=== PATIENT | female | born 1995 | race Caucasian/White ===

== ENCOUNTER → 2016-09-07 | Outpatient (CLI) | payer OTHER ==
[~2016-09-07] MED LIST: CEPH500T PO; FOLI1TAB7 PO; FRRS300 PO; LEVE250T PO; OXYC-57 PO; PRENTAB26 PO
[2016-09-07 14:42] LABS: BASO % 0.3 %; BASO ABS # 0.02 K/uL (0-0.2); COMPLETE YES; EOS % 0.5 %; HEMATOCRIT 34.7 % (37-47); IG% 0.2 %; LYMPH % 23.8 %; LYMPH ABS # 1.58 K/uL (1.2-3.4); MEAN CELL VOLUME 82.6 fL (80-100); MEAN CORPUSCULAR HEMOGLOBIN 30.2 pg (25-34); MEAN CORPUSCULAR HGB CONC 36.6 g/dl (32-36); MEAN PLATELET VOLUME 10.6 fL (7.4-10.4); MONO % 9.5 %; NEUT % 65.7 %; PLATELET COUNT 149 K/uL (130-400); WHITE BLOOD COUNT 6.65 K/uL (4.8-10.8)
[2016-09-07 15:04] LABS: GTGD 50 Grams
[2016-09-07 16:17] LABS: URINE APPEARANCE CLEAR (CLEAR); URINE COLOR DK YELLOW; URINE EPITHELIAL CELL AUTO >30 /lpf (0-5); URINE NITRITE NEG (NEG); URINE PH 6.5 (4.5-7.5); URINE SPECIFIC GRAVITY 1.025 (1.000-1.030); UROBILINOGEN NEG (NEG)
[2016-09-07 16:20] LABS: MANUAL MICROSCOPIC REQUIRED? NO; REVIEW REQ? NO
[2016-09-07 16:21] LABS: URINE BILIRUBIN NEG (NEG)
[2016-09-10 08:33] LABS: CHLAMYDIA TRACH RNA*** NOT DETECTED (NOT DETECTED); GC (NEIS GONORRHOEAE)RNA** NOT DETECTED (NOT DETECTED)
== END | disposition home or self-care (01) ==
LOC: C.LAB1850 13:12
PROVIDERS: ATTEND Obstetrics & Gynecology
DX: Z34.82 Encounter for supervision of other normal pregnancy, second trimester (principal)

== ENCOUNTER → 2016-12-06 | Outpatient (CLI) | payer OTHER ==
[~2016-12-06] MED LIST changes: -CEPH500T PO; -OXYC-57 PO
[2016-12-06 15:41] LABS: HEMATOCRIT 31.1 % (37-47)
[2016-12-06 16:27] LABS: URINE APPEARANCE CLEAR (CLEAR); URINE BILIRUBIN NEG (NEG); URINE COLOR DK YELLOW; URINE EPITHELIAL CELL AUTO >30 /lpf (0-5); URINE NITRITE NEG (NEG); URINE SPECIFIC GRAVITY 1.028 (1.000-1.030); UROBILINOGEN POS (NEG)
[2016-12-06 16:34] LABS: MANUAL MICROSCOPIC REQUIRED? NO; REVIEW REQ? NO
[2016-12-06 17:30] LABS: GTGD 50 Grams
== END | disposition home or self-care (01) ==
LOC: C.LAB1850 14:15
PROVIDERS: ATTEND Obstetrics & Gynecology
DX: Z34.83 Encounter for supervision of other normal pregnancy, third trimester (principal)

== ENCOUNTER 2016-12-15 23:03 | Outpatient (CLI) | payer OTHER ==
[~2016-12-15] VITALS: Ht 152.4 cm; Wt 54.0 kg
[2016-12-16 00:39] VITALS: Ht 152.4 cm; Wt 54.0 kg
[2016-12-16 01:34] LABS: URINE APPEARANCE CLOUDY (CLEAR); URINE BILIRUBIN NEG (NEG); URINE COLOR YELLOW; URINE EPITHELIAL CELL AUTO >30 /lpf (0-5); URINE NITRITE NEG (NEG); URINE PH 8.5 (4.5-7.5); URINE SPECIFIC GRAVITY 1.016 (1.000-1.030); UROBILINOGEN NEG (NEG); ZZUR CULT IF INDIC CLEAN CATCH NO
[2016-12-16 01:36] LABS: MANUAL MICROSCOPIC REQUIRED? NO; REVIEW REQ? YES
== END 2016-12-16 01:58 | disposition home or self-care (01) ==
LOC: C.OPB 23:03 → C.LD 23:03 → C.OPB 12-16 01:58
PROVIDERS: ATTEND Obstetrics & Gynecology
DX: O26.893 Other specified pregnancy related conditions, third trimester (principal); N89.8 Other specified noninflammatory disorders of vagina; Z3A.29 29 weeks gestation of pregnancy

== ENCOUNTER 2017-02-22 01:16 | Observation (INO) | payer OTHER ==
[~2017-02-22] VITALS: Ht 152.4 cm; Wt 62.1 kg
[~2017-02-22 01:16] MED LIST changes: -FOLI1TAB7 PO; -FRRS300 PO; -LEVE250T PO
[2017-02-22 02:18] LABS: URINE APPEARANCE CLOUDY (CLEAR); URINE BILIRUBIN NEG (NEG); URINE COLOR YELLOW; URINE EPITHELIAL CELL AUTO >30 /lpf (0-5); URINE NITRITE POS (NEG); UROBILINOGEN NEG (NEG); ZZUR CULT IF INDIC CLEAN CATCH YES
[2017-02-22 02:19] LABS: MANUAL MICROSCOPIC REQUIRED? NO; REVIEW REQ? NO
[2017-02-22 02:25] LABS: MEAN CORPUSCULAR HGB CONC 31.6 g/dl (32-36)
[2017-02-22 02:35] LABS: MEAN CORPUSCULAR HEMOGLOBIN 21.8 pg (25-34); RED BLOOD COUNT 4.49 M/uL (4.2-5.4); WHITE BLOOD COUNT 10.87 K/uL (4.8-10.8)
[2017-02-22] MEDS ORDERED: LACTATED RINGER'S 1000ML 500 ML IV ONE (02:39)
[2017-02-22] MEDS ORDERED: NURSING VERBAL MED ORDER ONE ×3 (02:45→03:30)
[2017-02-22] MEDS ORDERED: OXYCODONE/ACETAMINOPHEN 5-325 TAB PO STA (02:48)
[2017-02-22 02:56] LABS: BASO % 0.2 %; BASO ABS # 0.02 K/uL (0-0.2); COMPLETE YES; EOS % 0.2 %; IG% 0.3 %; LYMPH % 17.2 %; LYMPH ABS # 1.87 K/uL (1.2-3.4); MICROCYTOSIS PRESENT; MONO % 11.5 %; NEUT % 70.6 %; PLATELET COUNT 140 K/uL (130-400); PLT ESTIMATE NORMAL
[2017-02-22] MEDS ORDERED: CEFAZOLIN IV 2,000 MG in SYRINGE 0 ML IV SCH ×2 (03:00→11:00)
[2017-02-22] MEDS ORDERED: ONDANSETRON INJ 2 MG/ML 2 ML VIAL IV STA (03:28)
[2017-02-22 04:15] LABS: ALB/GLOB RATIO 0.6 (0.9-2); ALKALINE PHOSPHATASE 181 U/L (45-117); ALT/SGPT 15 U/L (12-78); AST/SGOT 14 U/L (15-37); BLOOD UREA NITROGEN 5 mg/dl (7-18); BUN/CREATININE RATIO 7.7 (10-20); CALCIUM 8.2 mg/dl (8.5-10.1); CARBON DIOXIDE 22 mmol/L (21-32); CHLORIDE 108 mmol/L (98-107); GLUCOSE 98 mg/dl (70-99); POTASSIUM 3.4 mmol/L (3.5-5.1); SODIUM 139 mmol/L (136-145)
[2017-02-22] MEDS ORDERED: OXYCODONE/ACETAMINOPHEN 5-325 TAB PO PRN (05:15)
[2017-02-22] MEDS ORDERED: CEFAZOLIN IV 2,000 MG in DEXTROSE 5% 50ML 50 ML IV SCH (05:15)
[2017-02-22] MEDS: LACTATED RINGER'S 1000ML 1,000 ML IV SCH ×2 (06:05→10:59)
[2017-02-22] MEDS ORDERED: ACETAMINOPHEN 500 MG TAB PO PRN (06:30)
[2017-02-22 07:12] VITALS: Ht 152.4 cm; Wt 62.1 kg
--- NOTE | 2017-02-22 13:15 | Discharge Instructions ---
Discharge Instructions Date of Service Feb 22, 2017. Admission Reason for Admission: Check Rupture Discharge Discharge Diagnosis / Problem: pyelonephritis Discharge Goals Goal(s): Continuing OB care Activity Recommendations Activity Limitations: per Instructions/Follow-up section . Instructions / Follow-Up Instructions / Follow-Up SPECIAL CARE INSTRUCTIONS: Call Doctor if: * Regular contractions every 5 minutes or greater than contractions in one hour. * Bleeding * Water breaks or is leaking * Decreased movement * Fever >100.4 degrees F * Pain not relieved by routine measures or pain medication ordered. FOLLOW UP VISIT: Return to Labor and Delivery on for /call for appointment time . Follow-up Visit with: When: Current Hospital Diet Patient's current hospital diet: Regular Diet Discharge Diet Recommended Diet: Regular OB Diet Pending Studies Studies pending at discharge: no Medical Emergencies . Who to Call and When: Medical Emergencies: If at any time you feel your situation is an emergency, please call 911 immediately. . Non-Emergent Contact Non-Emergency issues call your: [employer] Consultant . . "Provider Documentation" section prepared by Juancarlos Bhagat. . VTE Core Measure Inpt VTE Proph given/why not?: Treatment not indicated
[2017-02-22] MEDS ORDERED: OXYC-57 PO ×2 (13:16)
[2017-02-22] MEDS ORDERED: CEPH500T PO ×2 (13:16)
[2017-02-22] MEDS ORDERED: IV FLUIDS COMPLETED PRN (15:15)
== END 2017-02-22 13:55 | disposition home or self-care (01) ==
LOC: C.OPB 01:16 → C.LD 01:18 → C.OPB 15:10 → UNDOADMOB 15:10 → C.LD 15:10 → INTOOBSV 15:10
PROVIDERS: ADMIT Obstetrics & Gynecology; ATTEND Obstetrics & Gynecology
DX: O99.89 Other specified diseases and conditions complicating pregnancy, childbirth and the puerperium (principal); O26.893 Other specified pregnancy related conditions, third trimester; Z3A.39 39 weeks gestation of pregnancy

== ENCOUNTER 2017-02-23 11:42 | Inpatient (IN) | payer OTHER ==
[~2017-02-23] VITALS: Ht 152.4 cm; Wt 62.0 kg
[~2017-02-23 11:42] MED LIST changes: +CEPH500T PO; +OXYC-57 PO
[2017-02-23] MEDS ORDERED: LACTATED RINGER'S 1000ML 1,000 ML IV PRN (11:54)
[2017-02-23] MEDS ORDERED: LACTATED RINGER'S 1000ML 1,000 ML IV SCH ×2 (11:54→14:58)
[2017-02-23] MEDS ORDERED: PENICILLIN G POTASSIUM IV 3 MU in DEXTROSE 5% 100ML 100 ML IV PRN (12:00)
[2017-02-23] MEDS ORDERED: PENICILLIN G POTASSIUM IV 6 MU in DEXTROSE 5% 250ML 250 ML IV ONE (12:00)
[2017-02-23] MEDS ORDERED: EpHEDrine SULFATE INJ 50 MG/ML AMP ONE (12:07)
[2017-02-23] MEDS ORDERED: FENTANYL 2MCG/ML ROPIV 1.25MG/ML 100ML BAG EPI ONE (12:07)
[2017-02-23] MEDS ORDERED: BUPIVACAINE 0.25% 30 ML VIAL ONE (12:07)
[2017-02-23] MEDS ORDERED: FENTANYL CITRATE INJ 50 MCG/1 ML 2 ML VIAL ONE (12:07)
[2017-02-23 12:17] VITALS: Ht 152.4 cm; Wt 62.0 kg
[2017-02-23 12:19] LABS: HEMATOCRIT 30.9 % (37-47); MEAN CELL VOLUME 69.8 fL (80-100); MEAN CORPUSCULAR HEMOGLOBIN 21.7 pg (25-34); MEAN CORPUSCULAR HGB CONC 31.1 g/dl (32-36); MEAN PLATELET VOLUME 10.4 fL (7.4-10.4); PLATELET COUNT 105 K/uL (130-400); RED BLOOD COUNT 4.43 M/uL (4.2-5.4)
[2017-02-23] MEDS ORDERED: LACTATED RINGER'S 1000ML 500 ML IV PRN (13:43)
[2017-02-23] MEDS ORDERED: NALOXONE HCL INJ 1 MG in SODIUM CHLORIDE 0.9% 1000ML 1,000 ML IV PRN (13:43)
[2017-02-23] MEDS ORDERED: DiphenhydrAMINE HCL 50 MG/ML VIAL IV PRN (13:45)
[2017-02-23] MEDS ORDERED: NALOXONE HCL INJ 0.4 MG/1 ML VIAL/CARP IV PRN (13:45)
[2017-02-23] MEDS ORDERED: NALBUPHINE HCL INJ 10 MG/ML AMP IV PRN (13:45)
[2017-02-23] MEDS ORDERED: EpHEDrine SULFATE INJ 50 MG/ML AMP IV PRN (13:45)
[2017-02-23] MEDS ORDERED: FENTANYL 2MCG/ML ROPIV 1.25MG/ML 100ML BAG EPI PRN (13:45)
[2017-02-23] MEDS ORDERED: PROMETHAZINE HCL INJ 6.25 MG in SODIUM CHLORIDE 0.9% 50ML 50 ML IV PRN (13:45)
[2017-02-23] MEDS ORDERED: ONDANSETRON INJ 2 MG/ML 2 ML VIAL IV PRN (13:45)
[2017-02-23] MEDS ORDERED: OXYTOCIN 30 UNITS/500ML NSS IV ONE (14:24)
[2017-02-23] MEDS ORDERED: BENZOCAINE 20% AER SPR 82.5 GM CAN EXT PRN (15:00)
[2017-02-23] MEDS ORDERED: OXYTOCIN 30 UNITS/500ML NSS IV PRN (15:00)
[2017-02-23] MEDS ORDERED: DIPHTHERIA/TETANUS/PERTUSSIS 0.5 ML SYR/VIAL IM. ONE (15:00)
[2017-02-23] MEDS ORDERED: HYDROCORTISONE ACETATE 25 MG SUPP PR PRN (15:00)
[2017-02-23] MEDS ORDERED: SUPERCREAM 0.870 % 15GM JAR EXT PRN (15:00)
[2017-02-23] MEDS ORDERED: LANOLIN OINT EXT PRN ×2 (15:00)
--- NOTE | 2017-02-23 15:25 | DELIVERY SUMMARY ---
DATE OF OPERATION: 02/23/2017 VAGINAL DELIVERY NOTE DATE OF DELIVERY: 02/23/2017 PROCEDURE: Spontaneous vaginal delivery. SURGEON: Dr. John. ESTIMATED BLOOD LOSS: 300. COMPLICATIONS: None. DISPOSITION: Stable in labor and delivery. DESCRIPTION: Trang is a 21-year-old G2, P1-0-0-1 who presented in labor. She was managed with an epidural for pain management, antibiotics for group B strep positivity and expectant management of labor itself. She reached 9+ cm of dilation and noted to have a decrease in baseline to 90-100. Because of this, the patient was encouraged to begin her second stage of labor while I held back the anterior lip of the cervix once the patient had successfully pushed past to the anterior lip. She was then put in position and encouraged to begin her second stage of labor in earnest. She pushed very well. Of note, the baseline did return to a normal level after several pushes. She then continued through a normal second stage of labor to a spontaneous delivery of the head in the ANAND position followed by both shoulders without any difficulty and the remainder of the infant as well. The was placed on the maternal abdomen where the cord was doubly clamped and cut by the father. Gentle traction was then placed on the cord which promptly avulsed which is not surprising considering the velamentous nature of the insertion which had been suspected. Fundal massage did not result in delivery of the placenta over the next several minutes, therefore a sterile gloved hand was used to manually extract the placenta. This will be sent for pathology. Further fundal massage revealed a firm well contracted uterus with minimal lochia and at the completion of the procedure no perineal, cervical or vaginal lacerations were found that required repair. The mother and infant are both in good condition having tolerated delivery well. I attest to the content of the Intraoperative Record and any orders documented therein. Any exception s are noted below.
--- NOTE | 2017-02-23 16:49 | Anesthesia Procedure Note ---
Anesthesia Epidural Removal Nt Date & Time Feb 23, 2017 at 16:49 Vital Signs Pain Intensity: 0.0 Notes Mental Status: alert / awake / arousable, participated in evaluation Nausea / Vomiting: adequately controlled Pain: adequately controlled Airway Patency, RR, SpO2: stable & adequate BP & HR: stable & adequate Hydration State: stable & adequate Neuraxial Anesthesia: was administered Anesthetic Complications: no major complications apparent, pt satisfied with anesthetic care Epidural: removed without complications, with tip intact
[2017-02-23] MEDS: ACETAMINOPHEN 325 MG TAB PO PRN (18:20)
[2017-02-23] MEDS: IBUPROFEN 600 MG TAB PO PRN (19:42)
[2017-02-23] MEDS: DOCUSATE SODIUM 100 MG CAP PO SCH (19:42)
[2017-02-23] MEDS: CEPHALEXIN MONOHYDRATE 500 MG CAP PO SCH (19:45)
[2017-02-23 19:48] VITALS: BP 104/58; PULSE 91; TEMP 37
[2017-02-23 20:30] VITALS: BP 100/60; PULSE 81; O2SAT 98
[2017-02-24] VITALS (7 sets, daily range): BP systolic 92–109; BP diastolic 56–72; PULSE 67–83; TEMP 36.5–36.8; O2SAT 98–100
[2017-02-24] MEDS: ACETAMINOPHEN 325 MG TAB PO PRN (01:08)
[2017-02-24] MEDS: IBUPROFEN 600 MG TAB PO PRN ×4 (03:26→22:24)
[2017-02-24] MEDS: CEPHALEXIN MONOHYDRATE 500 MG CAP PO SCH ×5 (03:56→20:15)
[2017-02-24 06:15] LABS: HEMATOCRIT 31.7 % (37-47)
--- NOTE | 2017-02-24 08:43 | Progress Note ---
Subjective Feb 24, 2017. Subjective conversation w/ patient, physical exam Ambulation: ambulating normally Voiding: no voiding problems Passing Gas: Yes Diet Tolerance: Regular Diet Lochia: Moderate Feeding Type: Bottle Feeding Review of Systems Constitutional: No fever, No chills Respiratory: No cough Cardiac: No chest pain Abdomen: No nausea, No vomiting Objective Vital Signs Date Time Temp Pulse Resp B/P (MAP) Pulse Ox O2 Delivery O2 Flow Rate FiO2 02/24/17 05:00 36.6 72 16 92/56 02/24/17 00:07 36.7 83 16 97/58 02/24/17 00:07 36.7 83 16 97/58 (71) 98 Room Air 02/24/17 00:07 Room Air 02/23/17 20:30 81 18 100/60 (73) 98 Room Air 02/23/17 19:48 37.0 91 18 104/58 Physical Exam General Appearance: WELL-APPEARING, NO APPARENT DISTRESS Respiratory/Chest: no respiratory distress, no accessory muscle use Cardiovascular: no edema Abdomen: non tender, soft Fundus: Firm Extremities: no calf tenderness Laboratory Results Last 24 Hours Test 02/23/17 12:01 02/24/17 05:41 White Blood Count 10.60 K/uL Red Blood Count 4.43 M/uL Hemoglobin 9.6 g/dL 9.9 g/dL Hematocrit 30.9 % 31.7 % Mean Corpuscular Volume 69.8 fL Mean Corpuscular Hemoglobin 21.7 pg Mean Corpuscular Hemoglobin Concent 31.1 g/dl RDW Standard Deviation 38.9 fL RDW Coefficient of Variation 15.4 % Platelet Count 105 K/uL Mean Platelet Volume 10.4 fL Assessment and Plan Post- Day#: 1 Continue Routine Care: Routine PP care
[2017-02-24] MEDS: DOCUSATE SODIUM 100 MG CAP PO SCH ×2 (09:16→20:15)
[2017-02-24] MEDS: PRENATAL VITAMIN TAB PO SCH (09:16)
[2017-02-24] MEDS ORDERED: MAGNESIUM HYDROXIDE SUSP 30 ML UDC PO PRN (23:30)
[2017-02-25] MEDS: OXYCODONE/ACETAMINOPHEN 5-325 TAB PO PRN ×2 (00:02→08:16)
[2017-02-25] MEDS: ACETAMINOPHEN 325 MG TAB PO PRN (01:06)
[2017-02-25 07:32] VITALS: BP 105/65; PULSE 64; TEMP 36.8; O2SAT 100
--- NOTE | 2017-02-25 07:38 | Progress Note ---
Subjective Feb 25, 2017. Subjective conversation w/ patient, physical exam, chart review, lab review Ambulation: ambulating normally Voiding: no voiding problems Passing Gas: Yes Diet Tolerance: Regular Diet Lochia: Moderate Feeding Type: Bottle Feeding Pain: controlled Review of Systems Constitutional: No chills, No sweats Cardiac: No chest pain Abdomen: No nausea, No vomiting Female : No dysuria Objective Vital Signs Date Time Temp Pulse Resp B/P (MAP) Pulse Ox O2 Delivery O2 Flow Rate FiO2 02/24/17 23:50 36.8 82 16 107/60 02/24/17 23:50 Room Air 02/24/17 20:10 36.6 82 18 95/61 (72) 100 Room Air 02/24/17 16:10 36.6 68 18 109/72 (84) 100 Room Air 02/24/17 16:10 100 Room Air 02/24/17 13:10 36.7 67 18 102/68 (79) 98 Room Air 02/24/17 09:10 36.5 69 18 103/67 (79) 99 Room Air 02/24/17 09:10 99 Room Air Physical Exam General Appearance: WELL-APPEARING, WD/WN, NO APPARENT DISTRESS Respiratory/Chest: lungs clear, normal breath sounds, no respiratory distress Cardiovascular: regular rate, rhythm, no gallop, no JVD Abdomen: normal bowel sounds, soft Fundus: Firm, Tender (appropriately tender), Relation to Umbilicus (2 below U) Extremities: non-tender, normal inspection, no pedal edema Assessment and Plan Post- Day#: 2 Continue Routine Care: B + / GBS + / RI. Hbg 9.6, 9.9. Stable. Pt's pain is controlled Encourage ambulation, , continue motrin/tylenol Continue routine post care SHILOHNADEGE LIN PGY 1 FMR Resident Physician Supervision Note: I interviewed and examined the patient. Discussed with Dr. Lin and agree with findings and plan as documented in the note. Any exceptions or clarifications are listed here: [None] Documented By: Mai John Resident Tracking Resident Involvement: Resident Care Provided Care Provided: OB Delivery
--- NOTE | 2017-02-25 07:41 | Discharge Instructions ---
Discharge Instructions Date of Service Feb 25, 2017. Admission Reason for Admission: Check Labor Discharge Discharge Diagnosis / Problem: Spontaneous Vaginal Delivery Discharge Goals Goal(s): Routine recovery after delivery Medications Continue Dispensed Medications: supercream, dermaplast, tucks, lansinoh Activity Recommendations Activity Limitations: per Instructions/Follow-up section . Instructions / Follow-Up Instructions / Follow-Up CONTINUE YOUR KEFLEX ANTIBIOTIC MEDICATION PRESCRIBED. ACTIVITY RECOMMENDATIONS: * Gradual return to full activity over the next 2-3 weeks. * No lifting - nothing heavier than baby over the next 2-3 weeks. * Do not engage in vigorous exercise, sexual activity or sports until cleared by your physician. * Do not drive or operate any motorized equipment until cleared by your physician. * You may shower/bathe daily. MEDICATIONS: For discomfort or pain, you may use Acetaminophen (Tylenol), Ibuprofen (Advil), or Naproxen (Aleve) following the package directions. For constipation you may use Colace following the package directions. BREAST CARE: If you are not breast feeding: * Wear a supportive bra 24 hours a day for one to two weeks. * Avoid stimulating your breasts and nipples as much as possible during the first few weeks after delivery. * When taking a shower, have the warm water hit your back, not breasts. * When your breasts feel full, apply ice packs. Usually three to four times a day helps ease the discomfort. * Take a mild pain medication (Tylenol / Motrin) when you are uncomfortable. If breast feeding: * Use breast milk to lubricate nipples. Lansinoh cream may be used for sore nipples. You do not need to remove cream prior to breast feeding. If using a different brand of cream, check the label for directions regarding removal of cream prior to nursing. * Wear a supportive bra. * If having problems with breasts or breast feeding, call a aviation consultant or your health care provider. EPISIOTOMY CARE: After delivery, if you have an episiotomy (stitches), the following steps will ease discomfort and aid healing. * For the first 24 hours after delivery, place ice packs next to your episiotomy to help reduce swelling. * After the first 24 hour-period, sitz baths, either portable or in the tub, are suggested. A shower with a shower arm sprayed over the episiotomy may be comforting. * Brittany care should be done after each voiding and bowel movement. Squirt warm water from a plastic bottle over the perineum (region of the body between the anus and urinary opening) and pat dry. * Use Dermoplast to ease discomfort. Shake container. [place] directly over the episiotomy. Place a Tucks on a clean sanitary pad next to your episiotomy. SPECIAL CARE INSTRUCTIONS: When you are discharged from the hospital, it is important for you to follow the instructions listed below: * During the first week at home, you should be able to care for yourself and your baby. In addition, the usual light household activities are encouraged. * Limit your activities to the way you feel. Do not try to clean the house or move furniture. Be sensible. * If you actively engage in sports and have done so up until the time of your delivery, you may resume these activities as soon as you feel able. This may take up to one month or even longer. Use good judgment. * Continue to take your vitamins for at least six weeks after the of your baby. * Your diet need not be limited unless you were on a special diet before your delivery. Breast-feeding mothers need around 2500 calories per day and at least 64-80 ounces of fluid per day (8 to 10 glasses). * You should eat foods from the four major food groups. Crash diets or fad diets are to be avoided. Eating lean meats, fresh fruits and vegetables, low-fat dairy products, high fiber foods and a regular exercise program, will help you get back to your pre- weight without putting your health at risk. * Constipation is sometimes a problem after delivery. Take a mild laxative as needed. If breast feeding, Milk of Magnesia is acceptable to use. You may use a suppository or Fleets enema if no episiotomy. * A daily shower or tub bath is suggested. Be sure to thoroughly and gently dry the perineum. * A bloody vaginal discharge will usually continue until around four weeks post . A small amount of bleeding may continue for as long as six weeks. Vaginal discharge changes from the bright red bleeding after delivery to pink then brownish and finally yellowish-pink before becoming white and disappearing. * Bleeding may increase with activity. Your first period may come in 4-8 weeks. If you are breast feeding, your period may be delayed even longer. * [place] (sex) can begin whenever both you and your partner feel comfortable and do not have any form of genital infection. It is recommended that you wait at least six weeks for internal and external healing to occur. If you have questions, please talk to your health care practitioner. A condom should be used to prevent infection and . * Foreplay, gentle intercourse and lubrication is very important the first several times to prevent pain. A water-based lubricant such as K-Y jelly or Astroglide may be used. * If you have RH negative blood and your baby is RH positive, you will receive RHOGAM by injection prior to discharge. The nurse will give you a card to keep with you that has the date and place that you received RHOGAM after delivery. * During your care, you had a Rubella screen done to check for the presence of rubella antibodies in your blood. If your test was negative, you will receive a Rubella vaccine prior to discharge. This vaccine may cause a fever, soreness at the injection site and flu-like symptoms. If these symptoms persist, notify your health care practitioner. is not advised for one month after a Rubella vaccine. * Verbalizes understanding of car seat law as reviewed with patient nursing. * Car Seat hand-out given and reviewed with patient by nursing. * Shaken baby information reviewed with patient by nursing. Call you doctor if: * Heavy bleeding (saturating several pads an hour) or passing clots the size of your fist. * A fever >101 degrees F (38.3 degrees C) on two occasions four hours apart and /or chills. * Unusual pain in the pelvic or vaginal areas. * "Baby Blues" lasting longer than two weeks. If you have any questions or concerns, call your health care practitioner at . FOLLOW UP VISIT: * Please call the office at to schedule a 6 week examination. It is important you keep this appointment. It is important for you to make arrangements for either yearly or twice yearly check-ups thereafter. Current Hospital Diet Patient's current hospital diet: Regular OB Diet Discharge Diet Recommended Diet: Regular Diet Pending Studies Studies pending at discharge: no Medical Emergencies . Who to Call and When: Medical Emergencies: If at any time you feel your situation is an emergency, please call 911 immediately. . Non-Emergent Contact Non-Emergency issues call your: Primary Care Provider . . "Provider Documentation" section prepared by Gali Lin. . VTE Core Measure Inpt VTE Proph given/why not?: Treatment not indicated
[2017-02-25 07:45] VITALS: BP 99/54; PULSE 80; TEMP 36.8; O2SAT 100
[2017-02-25] MEDS: CEPHALEXIN MONOHYDRATE 500 MG CAP PO SCH ×2 (08:13→12:13)
[2017-02-25] MEDS: DOCUSATE SODIUM 100 MG CAP PO SCH (08:13)
[2017-02-25] MEDS: PRENATAL VITAMIN TAB PO SCH (08:13)
[2017-02-25] MEDS ORDERED: MedroxyPROGESTERone ACETATE 150 MG/ML 1 ML VIAL IM ONE (09:00)
[2017-02-25 15:00] VITALS: BP_DIAS 54; PULSE 80; TEMP 36.8
== END 2017-02-25 15:00 | disposition home or self-care (01) | DRG 775 ==
LOC: C.OPB 11:42 → C.LD 11:43 → C.OPB 11:56 → C.OBG 17:47
PROVIDERS: ADMIT Obstetrics & Gynecology; ATTEND Obstetrics & Gynecology
PROC: 10E0XZZ Delivery of Products of Conception, External Approach (ICD-10-PCS; principal; 2017-02-23)
DX: O43.123 Velamentous insertion of umbilical cord, third trimester (principal); O26.893 Other specified pregnancy related conditions, third trimester; R62.50 Unspecified lack of expected normal physiological development in childhood; Z22.330 Carrier of Group B streptococcus; Z3A.39 39 weeks gestation of pregnancy; Z37.0 Single live birth

== ENCOUNTER 2018-10-08 16:54 | Inpatient (IN) ==
[2018-10-08] MEDS ORDERED: LACTATED RINGER'S 1,000 ML IV PRN (17:44)
[2018-10-08] MEDS ORDERED: OXYTOCIN 30 UNITS/500 ML BAG IV PRN (17:44)
[2018-10-08] MEDS ORDERED: PENICILLIN G POTASSIUM 3 MU in DEXTROSE 5% 100 ML IV PRN (17:44)
--- NOTE | 2018-10-08 17:52 | History & Physical Report ---
Date of Service October 08, 2018 Assessment & Plan (1) Normal labor: IUP at 39 weeks in labor anticipate vaginal requests epidural analgesia Present on Admission?: Yes (2) GBS carrier: start PCN G for GBS prophylaxis Present on Admission?: Yes History of Present Illness Primary Care Provider: Sara Marquis MD Patient is a 23 yo white female EDC10/10/18 who presents with regular contractions although her chief complaint is vaginal pain & pressure. She was seen in the office & noted to be 4-5 cm dilated & she was sent to L&D. 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 Allergies Allergy/AdvReac Type Severity Reaction Status Date / Time mivacurium Allergy Mild RASH Verified 10/08/18 17:33 clarithromycin Allergy Unknown HAPPENED Verified 10/08/18 17:33 A CHILD Home Medications Home Medications Medication Instructions Recorded Confirmed Type PNV cmb#95-ferrous fumarate-FA 1 tab PO DAILY 10/03/18 10/08/18 History [] nitrofurantoin monohyd/m-cryst 100 mg PO BID 7 Days #14 cap 10/07/18 10/08/18 Rx phenazopyridine 200 mg PO TID 3 Days #9 tab 10/07/18 10/08/18 Rx Patient History Family History Grandmother (Maternal) Cancer Maternal Grandfather-Kidney Cancer Maternal/Paternal Grandmother-Breast Cancer Hypertension Grandfather (Maternal) Hypertension Grandfather (Maternal) Cancer Grandmother (Paternal) Cancer Social History Preferred Language: Cambodian Communication Ability: Effective Beliefs That Will Affect Care: None marital status: Single Current Living Situation: Family Current Living Situation Comment: lives with parents and other children Other Information That Helps Us Care for You: No Feels Safe at Home: Yes Safety Concerns: Feels Safe At This Time Smoking Status: Never smoker Do You Dip or Chew Tobacco: No Second Hand Exposure: Yes Hx Alcohol Use: No Hx Substance Use: No Review of Systems All systems reviewed & are unremarkable except as noted in HPI & below Physical Exam Constitutional: WD/WN, vitals as above Respiratory: normal respiratory effort, lungs clear to auscultation Cardiovascular: RRR, no murmur, no edema Gastrointestinal (Abdomen): normal bowel sounds, soft, nontender, no hepatosplenomegaly Musculoskeletal: no cyanosis or clubbing, extremities motor strength 5/5 no calf tenderness Genitourinary: OB Exam Abdomen: + vertex and + regular contractions (every 3-4 minutes) Manual OB Exam: + cervical dilation 5 cm, + cervical effacement 100%, + station 0 and + amniotic fluid OB Exam Monitor Tracing: + external FHT monitor used, + external uterine monitor used and + category I Results & Data Vital Signs (Past 12 Hours) Vital Signs Temp Pulse Resp BP 10/08/18 16:57 93 H 113/57 L 10/08/18 16:56 37.1 C 20
[2018-10-08 18:05] LABS: Hematocrit (blood only) 31.6 % (37-47); Hemoglobin 10.1 g/dL (12.0-16.0); Mean Corpuscular Volume 69.8 fL (80-100); Mean Platelet Volume 10.2 fL (7.4-10.4); Platelet Count 120 K/uL (130-400); RDW Coefficient of Variation 15.3 % (11.5-14.5); RDW Standard Deviation 38.6 fL (36.4-46.3); Red Blood Count 4.53 M/uL (4.2-5.4); White Blood Count 10.92 K/uL (4.8-10.8)
[2018-10-08] MEDS ORDERED: ePHEDrine sulfate 50 MG/ML AMP ONE (18:09)
[2018-10-08] MEDS ORDERED: BUPIVACAINE 0.25% 30 ML VIAL ONE (18:09)
[2018-10-08] MEDS ORDERED: fentaNYL citrate 100 MCG/2 ML VIAL ONE (18:10)
[2018-10-08] MEDS ORDERED: fentaNYL 2MCG/ML ROPIV 1.25MG/ML 100 ML BAG EPI ONE (18:10)
[2018-10-08] MEDS ORDERED: PENICILLIN G POTASSIUM 6 MU in DEXTROSE 5% 250 ML IV ONE (18:15)
--- NOTE | 2018-10-08 19:35 | Anesthesiology Consultation ---
Date of Service October 08, 2018 Assessment & Plan (1) Encounter for pre-operative examination: Chart Review Chart Review: Patient NOT seen in Pre Admission Testing and Acceptable Risk for Labor Epidural Consults Requested none ASA ASA2 Proposed Anesthesia Anesthesia Type: Labor Epidural Risk / Benefits Reviewed With: PT / POA / Parent / Guardian, Accepts Plan and Informed Consent Obtained History Height/Weight Height: 5 ft Weight: 55.338 kg Allergies Allergy/AdvReac Type Severity Reaction Status Date / Time mivacurium Allergy Mild RASH Verified 10/08/18 17:33 clarithromycin Allergy Unknown HAPPENED Verified 10/08/18 17:33 A CHILD Medications Home Medications Medication Instructions Recorded Confirmed Last Taken PNV cmb#95-ferrous fumarate-FA 1 tab PO DAILY 10/03/18 10/08/18 10/07/18 20:00 [] nitrofurantoin monohyd/m-cryst 100 mg PO BID 7 Days #14 cap 10/07/18 10/08/18 10/08/18 08:00 phenazopyridine 200 mg PO TID 3 Days #9 tab 10/07/18 10/08/18 Unknown Active Medications Generic Name Dose Route Start Last Admin Trade Name Freq PRN Reason Stop Dose Admin Lactated Ringer's 1,000 mls @ 125 mls/hr 10/08/18 17:44 10/08/18 19:21 Lr IV 10/10/18 17:43 125 mls/hr .Q8H PRN Infusion L&D Protocol Protocol Past Medical History Medical History Asthma Cerebral palsy Meningitis Seizures Vaginal delivery Exercise / Class Metabolic Activity II 4-5 Yardwork/Stairs/Walk up hill Past Family History Family History Grandmother (Maternal) Cancer Maternal Grandfather-Kidney Cancer Maternal/Paternal Grandmother-Breast Cancer Hypertension Grandfather (Maternal) Hypertension Grandfather (Maternal) Cancer Grandmother (Paternal) Cancer Past Anesthesia History No Hx of Anesthesia Complications and No Family Hx of Anesthesia Complications History of PONV No Hx of PONV and No Hx of Motion Sickness Social History Smoking Status: Never smoker Do You Dip or Chew Tobacco: No Hx Alcohol Use: No Hx Substance Use: No substance use type: does not use Physical Exam Vital Signs Last Vital Signs Temp 37.1 C 10/08/18 19:08 Pulse 94 H 10/08/18 19:32 Resp 16 10/08/18 19:27 BP 103/59 L 10/08/18 19:30 Pulse Ox 93 10/08/18 19:32 ENMT Mouth: no dentition abnormality Thyromental Distance: > or= 3.5 Finger Breadths Mallampati Class: II Neck normal visual inspection Respiratory normal respiratory effort Auscultation: lungs clear to auscultation bilaterally Cardiovascular Rate/Rhythm: regular rate and regular rhythm Psychiatric Orientation: alert Testing Laboratory Results 10/08/18 17:52
[2018-10-08] MEDS ORDERED: DiphenhydrAMINE HCL 50 MG/ML VIAL IV PRN (19:36)
[2018-10-08] MEDS ORDERED: ONDANSETRON INJ 2 MG/ML 2 ML VIAL IV PRN (19:36)
[2018-10-08] MEDS ORDERED: fentaNYL 2MCG/ML ROPIV 1.25MG/ML 100 ML BAG EPI PRN (19:36)
[2018-10-08] MEDS ORDERED: ePHEDrine sulfate 50 MG/ML AMP IV PRN (19:36)
[2018-10-08] MEDS ORDERED: NALOXONE HCL 1 MG in SODIUM CHLORIDE 0.9% 1000ML 1,000 ML IV PRN (19:36)
[2018-10-08] MEDS ORDERED: NALOXONE HCL 0.4 MG/1 ML VIAL/CARP IV PRN (19:36)
[2018-10-08] MEDS ORDERED: PROMETHAZINE HCL 6.25 MG in SODIUM CHLORIDE 0.9% 50 ML IV PRN (19:36)
[2018-10-08] MEDS ORDERED: NALBUPHINE HCL INJ 10 MG/ML AMP IV PRN (19:36)
[2018-10-08] MEDS ORDERED: ACETAMINOPHEN 325 MG TAB PO STA (21:02)
[2018-10-08] MEDS: NITROFURANTOIN MONOHYDRATE 100 MG CAP PO SCH (21:16)
[2018-10-09] MEDS ORDERED: SUPERCREAM 0.870% 15 GM JAR EXT PRN (00:04)
[2018-10-09] MEDS ORDERED: OXYCODONE/ACETAMINOPHEN 5mg/325mg TAB PO PRN (00:04)
[2018-10-09] MEDS ORDERED: OXYTOCIN 30 UNITS/500 ML BAG IV PRN (00:04)
[2018-10-09] MEDS ORDERED: BISACODYL 10 MG SUPP PR PRN (00:04)
[2018-10-09] MEDS ORDERED: HYDROCORTISONE ACETATE 25 MG SUPP PR PRN (00:04)
[2018-10-09] MEDS ORDERED: DIPHTHERIA/TETANUS/PERTUSSIS 0.5 ML SYR/VIAL IM ONE (00:04)
[2018-10-09] MEDS ORDERED: BENZOCAINE 20% AER SPR 82.5 GM CAN EXT PRN (00:04)
--- NOTE | 2018-10-09 01:52 | Delivery Summary ---
DATE OF OPERATION: 10/08/2018 DATE OF DELIVERY: 10/08/2018 The patient is a 23-year-old 3, para 2-0-0-2, white female, EDC of 10/10/2018, who presented in active labor. She received epidural analgesia and 2 doses of penicillin for group B strep carrier status. Membranes were ruptured for clear fluid. She progressed to full dilation at that point and she pushed effectively over intact perineum for delivery of a viable male infant. Mouth and nasopharynx were suctioned on delivery of the rest of the and was placed also on her abdomen for further drying and attention. There was vigorous crying and the was moving all 4 limbs. Cord was clamped and cut after 30 seconds. The placenta was expressed intact with a 3-vessel cord. Superficial abrasions of the perineum and bilateral labia were not bleeding and therefore not repaired. Estimated blood loss was 100 mL. Mother and infant were doing well after delivery. I attest to the content of the Intraoperative Record and any orders documented therein. Any exception s are noted below.
--- NOTE | 2018-10-09 02:38 | Anesthesiology Progress Note ---
Date of Service October 09, 2018 Anesthesia Post Procedure Vital Signs Vital Signs: Temp Pulse Resp BP Pulse Ox 10/09/18 02:13 93 H 108/68 10/09/18 01:58 91 H 103/66 10/09/18 01:43 92 H 101/60 10/09/18 01:28 80 16 98/54 L 10/09/18 01:13 84 107/58 L 10/09/18 00:58 80 18 100/62 10/09/18 00:43 78 18 102/61 10/09/18 00:28 81 18 97/56 L 10/09/18 00:26 80 97 10/09/18 00:21 85 97 10/09/18 00:18 82 98/57 L 10/09/18 00:16 82 90 10/09/18 00:13 18 10/09/18 00:11 88 96 10/09/18 00:06 96 H 92 10/09/18 00:01 93 H 96 10/08/18 23:58 94 H 18 112/58 L 10/08/18 23:56 90 113/56 L 97 10/08/18 23:51 95 H 97 10/08/18 23:47 108 H 85 L 10/08/18 23:46 101 H 93 10/08/18 23:41 100 H 97 10/08/18 23:38 108 H 112/73 10/08/18 23:36 107 H 97 10/08/18 23:33 93 H 87 L 10/08/18 23:31 96 H 97 10/08/18 23:28 92 H 82 L 10/08/18 23:26 86 99 10/08/18 23:22 93 H 16 105/59 L 10/08/18 23:21 88 98 10/08/18 23:18 86 86 L 10/08/18 23:16 90 95 10/08/18 23:12 93 H 85 L 10/08/18 23:11 82 98 10/08/18 23:08 80 107/62 10/08/18 23:06 83 94 10/08/18 23:03 85 83 L 10/08/18 23:01 80 97 10/08/18 22:58 81 87 L 10/08/18 22:56 90 98 10/08/18 22:53 83 98/59 L 86 L 10/08/18 22:51 87 95 10/08/18 22:46 91 H 97 10/08/18 22:41 95 H 87 L 10/08/18 22:37 88 104/67 10/08/18 22:36 89 99 10/08/18 22:31 85 99 10/08/18 22:28 36.8 C 16 10/08/18 22:26 79 99 10/08/18 22:24 86 89 L 10/08/18 22:22 86 101/62 10/08/18 22:21 83 99 10/08/18 22:16 81 95 10/08/18 22:11 92 H 96 10/08/18 22:10 86 83 L 10/08/18 22:07 78 97/61 L 10/08/18 22:06 80 98 10/08/18 22:05 88 87 L 10/08/18 22:01 79 99 10/08/18 22:00 87 88 L 10/08/18 21:56 90 96 10/08/18 21:52 89 107/67 10/08/18 21:51 78 94 10/08/18 21:46 78 90 10/08/18 21:43 86 88 L 10/08/18 21:41 89 100 10/08/18 21:38 83 97/62 L 10/08/18 21:36 86 91 10/08/18 21:33 81 86 L 10/08/18 21:31 84 100 10/08/18 21:26 92 H 97 10/08/18 21:25 36.6 C 10/08/18 21:23 85 97/55 L 10/08/18 21:21 90 98 10/08/18 21:16 79 100 10/08/18 21:11 81 99 10/08/18 21:09 84 101/62 10/08/18 21:07 82 102/60 10/08/18 21:06 93 H 98 10/08/18 21:02 105 H 89 L 10/08/18 21:01 90 97 10/08/18 20:56 81 99 10/08/18 20:52 85 18 103/58 L 10/08/18 20:51 87 99 10/08/18 20:46 88 100 10/08/18 20:45 92 H 88 L 10/08/18 20:41 80 98 10/08/18 20:39 91 H 89 L 10/08/18 20:38 88 16 107/55 L 10/08/18 20:36 83 97 10/08/18 20:33 81 84 L 10/08/18 20:31 86 98 10/08/18 20:26 81 100 10/08/18 20:23 86 16 101/55 L 10/08/18 20:21 88 98 10/08/18 20:20 82 85 L 10/08/18 20:16 95 H 90 10/08/18 20:12 89 93 10/08/18 20:11 97 H 95 10/08/18 20:06 95 H 18 112/71 98 10/08/18 20:01 92 H 111/70 99 10/08/18 19:56 88 98 10/08/18 19:55 90 107/65 10/08/18 19:52 88 113/64 10/08/18 19:51 89 98 10/08/18 19:46 87 97 10/08/18 19:45 103 H 106/57 L 10/08/18 19:42 92 H 16 117/59 L 10/08/18 19:41 103 H 97 10/08/18 19:36 96 H 97 10/08/18 19:35 91 H 105/63 10/08/18 19:33 90 16 104/60 10/08/18 19:32 94 H 93 10/08/18 19:31 94 H 96 10/08/18 19:30 88 103/59 L 10/08/18 19:27 88 16 105/59 L 10/08/18 19:26 95 H 98 10/08/18 19:24 94 H 16 108/66 10/08/18 19:23 99 H 91 10/08/18 19:21 92 H 107/64 99 10/08/18 19:17 102 H 92 10/08/18 19:16 104 H 98 10/08/18 19:11 106 H 96 10/08/18 19:09 85 106/59 L 10/08/18 19:08 37.1 C 18 10/08/18 19:06 82 96 10/08/18 16:57 93 H 113/57 L 10/08/18 16:56 37.1 C 20 Transfer of Care Handoff Completed per policy Notes Mental Status: alert / awake / arousable Patient Amnestic to Procedure: Yes Nausea / Vomiting: adequately controlled Pain: adequately controlled Airway Patency, RR, SpO2: stable & adequate BP & HR: stable & adequate Hydration State: stable & adequate Anesthetic Complications: no major complications apparent
[2018-10-09] MEDS: IBUPROFEN 600 MG TAB PO PRN ×4 (03:07→23:41)
--- NOTE | 2018-10-09 06:34 | Obstetrical Progress Note ---
Date of Service October 09, 2018 Assessment & Plan (1) Encounter for care and examination after delivery: satisfactory exam GBS(+) social service consult pending because of mental challenges & limited care. continue current care plan. Present on Admission?: No Day #:: 1 Subjective Ambulation: ambulating normally Voiding: no voiding problems Passing Gas:: Yes Diet Tolerance:: regular diet Lochia:: Moderate Feeding Type:: bottle feeding Review of Systems All systems reviewed & are unremarkable except as noted in HPI & below Physical Exam Constitutional WD/WN, vitals as above Gastrointestinal (Abdomen) normal bowel sounds, soft, nontender, no hepatosplenomegaly Genitourinary OB Exam Abdomen: + fundal height Fundus: + firm and + relation to umbilicus (1 below U) Results & Data Vital Signs (Past 12 Hours) Vital Signs Temp Pulse Resp BP Pulse Ox 10/09/18 03:15 36.8 C 85 16 98/53 L 10/09/18 02:47 36.8 C 85 16 98/53 L 10/09/18 02:13 93 H 108/68 10/09/18 01:58 91 H 103/66 10/09/18 01:43 92 H 101/60 10/09/18 01:28 80 16 98/54 L 10/09/18 01:13 84 107/58 L 10/09/18 00:58 80 18 100/62 10/09/18 00:43 78 18 102/61 10/09/18 00:28 81 18 97/56 L 10/09/18 00:26 80 97 10/09/18 00:21 85 97 10/09/18 00:18 82 98/57 L 10/09/18 00:16 82 90 10/09/18 00:13 18 10/09/18 00:11 88 96 10/09/18 00:06 96 H 92 10/09/18 00:01 93 H 96 10/08/18 23:58 94 H 18 112/58 L 10/08/18 23:56 90 113/56 L 97 10/08/18 23:51 95 H 97 10/08/18 23:47 108 H 85 L 10/08/18 23:46 101 H 93 10/08/18 23:41 100 H 97 10/08/18 23:38 108 H 112/73 10/08/18 23:36 107 H 97 10/08/18 23:33 93 H 87 L 10/08/18 23:31 96 H 97 10/08/18 23:28 92 H 82 L 10/08/18 23:26 86 99 10/08/18 23:22 93 H 16 105/59 L 10/08/18 23:21 88 98 10/08/18 23:18 86 86 L 10/08/18 23:16 90 95 10/08/18 23:12 93 H 85 L 10/08/18 23:11 82 98 10/08/18 23:08 80 107/62 10/08/18 23:06 83 94 10/08/18 23:03 85 83 L 10/08/18 23:01 80 97 10/08/18 22:58 81 87 L 10/08/18 22:56 90 98 10/08/18 22:53 83 98/59 L 86 L 10/08/18 22:51 87 95 10/08/18 22:46 91 H 97 10/08/18 22:41 95 H 87 L 10/08/18 22:37 88 104/67 10/08/18 22:36 89 99 10/08/18 22:31 85 99 10/08/18 22:28 36.8 C 16 10/08/18 22:26 79 99 10/08/18 22:24 86 89 L 10/08/18 22:22 86 101/62 10/08/18 22:21 83 99 10/08/18 22:16 81 95 10/08/18 22:11 92 H 96 10/08/18 22:10 86 83 L 10/08/18 22:07 78 97/61 L 10/08/18 22:06 80 98 10/08/18 22:05 88 87 L 10/08/18 22:01 79 99 10/08/18 22:00 87 88 L 10/08/18 21:56 90 96 10/08/18 21:52 89 107/67 10/08/18 21:51 78 94 10/08/18 21:46 78 90 10/08/18 21:43 86 88 L 10/08/18 21:41 89 100 10/08/18 21:38 83 97/62 L 10/08/18 21:36 86 91 10/08/18 21:33 81 86 L 10/08/18 21:31 84 100 10/08/18 21:26 92 H 97 10/08/18 21:25 36.6 C 10/08/18 21:23 85 97/55 L 10/08/18 21:21 90 98 10/08/18 21:16 79 100 10/08/18 21:11 81 99 10/08/18 21:09 84 101/62 10/08/18 21:07 82 102/60 10/08/18 21:06 93 H 98 10/08/18 21:02 105 H 89 L 10/08/18 21:01 90 97 10/08/18 20:56 81 99 10/08/18 20:52 85 18 103/58 L 10/08/18 20:51 87 99 10/08/18 20:46 88 100 10/08/18 20:45 92 H 88 L 10/08/18 20:41 80 98 10/08/18 20:39 91 H 89 L 10/08/18 20:38 88 16 107/55 L 10/08/18 20:36 83 97 10/08/18 20:33 81 84 L 10/08/18 20:31 86 98 10/08/18 20:26 81 100 10/08/18 20:23 86 16 101/55 L 10/08/18 20:21 88 98 10/08/18 20:20 82 85 L 10/08/18 20:16 95 H 90 10/08/18 20:12 89 93 10/08/18 20:11 97 H 95 10/08/18 20:06 95 H 18 112/71 98 10/08/18 20:01 92 H 111/70 99 10/08/18 19:56 88 98 10/08/18 19:55 90 107/65 10/08/18 19:52 88 113/64 10/08/18 19:51 89 98 10/08/18 19:46 87 97 10/08/18 19:45 103 H 106/57 L 10/08/18 19:42 92 H 16 117/59 L 10/08/18 19:41 103 H 97 10/08/18 19:36 96 H 97 10/08/18 19:35 91 H 105/63 10/08/18 19:33 90 16 104/60 10/08/18 19:32 94 H 93 10/08/18 19:31 94 H 96 10/08/18 19:30 88 103/59 L 10/08/18 19:27 88 16 105/59 L 10/08/18 19:26 95 H 98 10/08/18 19:24 94 H 16 108/66 10/08/18 19:23 99 H 91 10/08/18 19:21 92 H 107/64 99 10/08/18 19:17 102 H 92 10/08/18 19:16 104 H 98 10/08/18 19:11 106 H 96 10/08/18 19:09 85 106/59 L 10/08/18 19:08 37.1 C 18 10/08/18 19:06 82 96
[2018-10-09] MEDS: NITROFURANTOIN MONOHYDRATE 100 MG CAP PO SCH ×2 (08:38→20:42)
[2018-10-09] MEDS: PRENATAL VITAMIN 1 TAB PO SCH (08:38)
[2018-10-09] MEDS: DOCUSATE SODIUM 100 MG CAP PO SCH ×2 (08:38→19:37)
[2018-10-09] MEDS: ACETAMINOPHEN 325 MG TAB PO PRN ×2 (08:51→17:18)
[2018-10-10] MEDS: IBUPROFEN 600 MG TAB PO PRN (06:11)
[2018-10-10 06:28] LABS: Hematocrit (blood only) 32.7 % (37-47); Hemoglobin 10.3 g/dL (12.0-16.0); Mean Corpuscular Hgb Conc 31.5 g/dL (32-36); Platelet Count 115 K/uL (130-400); RDW Coefficient of Variation 15.6 % (11.5-14.5); RDW Standard Deviation 39.3 fL (36.4-46.3); Red Blood Count 4.67 M/uL (4.2-5.4); White Blood Count 7.68 K/uL (4.8-10.8)
--- NOTE | 2018-10-10 08:01 | Obstetrical Progress Note ---
Date of Service October 10, 2018 Assessment & Plan (1) Encounter for care and examination after delivery: doing well. i think her pain is musculoskeletal. she will get moving more and use motrin and tylenol to help with her pain. i don't think she has uti and can stop meds or continue to complete. Subjective pt is bottle feeding. she notes lower left hip pain that travels across her lower pelvis, apparently has been on macrobid and pyridium for possible uti, but urine cx from 10/06 is mixed nydia. she notes pain at base of nect that travels down her left side and shoots into her leg. she says she had left calf pain earlier today but that is now gone. she feels that it was related to her muscles. she denies significant bleeding. Physical Exam Constitutional: WD/WN, vitals as above Respiratory: normal respiratory effort, lungs clear to auscultation Cardiovascular: Rate/Rhythm: regular rate and regular rhythm Gastrointestinal (Abdomen): ff 2 down. no significant tenderness on abdominal exam. Musculoskeletal: no calf pain bilaterally. no swelling. neg eda's. LE equal in size. back without cvat. no pain elicited on exam. Psychiatric: seems to have trouble recalling time. Results & Data Vital Signs (Past 12 Hours) Vital Signs Temp Pulse Resp BP Pulse Ox 10/09/18 23:20 36.8 C 73 18 107/71 100
[2018-10-10] MEDS: ACETAMINOPHEN 325 MG TAB PO PRN (09:08)
[2018-10-10] MEDS: DOCUSATE SODIUM 100 MG CAP PO SCH (09:08)
[2018-10-10] MEDS: PRENATAL VITAMIN 1 TAB PO SCH (09:08)
[2018-10-10] MEDS ORDERED: MEDROXYPROGESTERONE ACETATE 150 MG/ML VIAL IM ONE (12:45)
[2018-10-10] MEDS ORDERED: BISACODYL 5 MG TABEC PO SCH (20:00)
== END 2018-10-10 14:05 | disposition home or self-care (01) | DRG 807 ==
LOC: OPB 16:54 → 4S1 16:54 → 4S2 10-09 03:15

== ENCOUNTER 2021-07-06 21:36 | Observation (INO) ==
[2021-07-06] MEDS ORDERED: PIPERACILLIN/TAZOBACTAM 4.5 GM/120 ML BAG IV STA (21:56)
[2021-07-06] MEDS ORDERED: SODIUM CHLORIDE 0.9% 1000ML 1,000 ML IV STA (21:56)
[2021-07-06] MEDS ORDERED: ONDANSETRON INJ 2 MG/ML 2 ML VIAL IV STA (21:56)
[2021-07-06] MEDS ORDERED: MoRPHine SULFATE 2 MG/ML CARP IV STA (22:28)
[2021-07-06 22:37] LABS: Eosinophils # (auto) 0.01 K/uL (0-0.5); Eosinophils % (auto) 0.1 %; Hematocrit (blood only) 34.8 % (37-47); Hemoglobin 12.5 g/dL (12.0-16.0); Immature Granulocytes # (auto) 0.01 K/uL (0.00-0.02); Immature Granulocytes % (auto) 0.1 %; Lymphocytes # (auto) 1.03 K/uL (1.2-3.4); Lymphocytes % (auto) 15.4 %; Mean Corpuscular Hemoglobin 28.2 pg (25-34); Mean Corpuscular Hgb Conc 35.9 g/dL (32-36); Mean Corpuscular Volume 78.4 fL (80-100); Mean Platelet Volume 9.9 fL (7.4-10.4); Monocytes # (auto) 0.75 K/uL (0.11-0.59); Monocytes % (auto) 11.2 %; Neutrophils # (auto) 4.87 K/uL (1.4-6.5); Neutrophils % (auto) 73.2 %; Platelet Count 158 K/uL (130-400); RDW Coefficient of Variation 14.1 % (11.5-14.5); Red Blood Count 4.44 M/uL (4.2-5.4); White Blood Count 6.67 K/uL (4.8-10.8)
[2021-07-06] MEDS ORDERED: OPTIRAY 320 100ml IV ONE (22:42)
[2021-07-06 23:11] LABS: Alanine Aminotransferase 10 U/L (7-52); Albumin Globulin Ratio 1.4 (0.9-2); Albumin Level 4.2 gm/dl (3.4-5.0); Alkaline Phosphatase 48 U/L (34-104); Anion Gap 6 (3-11); Aspartate Aminotransferase 12 U/L (13-39); BUN Creatinine Ratio 16.4 (10-20); Bilirubin,Total 0.8 mg/dl (0.2-1.0); Blood Urea Nitrogen 9 mg/dl (6-23); Calcium 9.1 mg/dl (8.5-10.1); Carbon Dioxide 26 mmol/L (21-32); Chloride 106 mmol/L (98-107); Est GFR (African American) > 150.0 ml/min; Est GFR (Non-African American) 131.3 ml/min; Globulin 2.9 gm/dl (2.5-4.0); Glucose 132 mg/dl (70-99(Fasting)); Potassium 3.2 mmol/L (3.5-5.1); Sodium 138 mmol/L (136-145); Total Protein 7.1 gm/dl (6.0-8.3)
--- NOTE | 2021-07-06 23:18 | Emergency Department Note ---
History of Present Illness General Chief complaint: Facial Injury/Pain Stated complaint: R SIDE FACE SWOLLEN, DIFFICULTY OPENING MOUTH Time Seen by Provider: 07/06/21 21:48 History of Present Illness 25-year-old female presents to the ED with a chief complaint of right facial swelling in the area of the right mandible. The patient states that she first noticed it today. She thinks that it might be coming from an infected tooth. She does have some dental decay and generally poor dentition. She has had some associated nausea in addition to pain. No vomiting. No fevers. No additional complaints. Home Medications Medication Instructions Recorded Confirmed Type No Known Home Medications 07/06/21 07/06/21 History Allergies Allergy/AdvReac Type Severity Reaction Status Date / Time azithromycin Allergy Unknown Rash Verified 07/06/21 22:03 clarithromycin Allergy Unknown HAPPENED Verified 07/06/21 22:03 A CHILD Past Med/Surg History Medical History (Updated 07/06/21 @ 23:17 by Amandeep Giles DO) Asthma Cerebral palsy Meningitis Seizures Vaginal delivery Family History Grandmother (Maternal) Cancer Maternal Grandfather-Kidney Cancer Maternal/Paternal Grandmother-Breast Cancer Hypertension Grandfather (Maternal) Hypertension Grandfather (Maternal) Cancer Grandmother (Paternal) Cancer Social History Smoking Status: Never smoker Second Hand Exposure: Yes; Hx Alcohol Use: No Hx Substance Use: No Preferred Language: Georgian Communication Ability: Effective Rod Pointer Required: No Beliefs That Will Affect Care: None marital status: Single Current Living Situation: Family Current Living Situation Comment: lives with parents and other children Feels Safe at Home: Yes Assistive Devices: None Review of Systems A total of 10 systems reviewed and were otherwise negative Physical Exam Vital Signs Vital Signs - 24 hr 07/06/21 21:44 07/06/21 22:45 Temperature 37.2 C 36.4 C L Temperature Source Oral Oral Pulse Rate 114 H Pulse Rate [Apical] 90 Pulse Rhythm [Apical] Regular Pulse Strength [Apical] Normal Respiratory Rate 16 18 Respiratory Effort / Characteristics Non-Labored Non-Labored Respiratory Depth Normal Normal Respiratory Pattern Regular Regular Blood Pressure 103/69 Blood Pressure [Right Arm] 112/86 Blood Pressure Mean 80 Blood Pressure Mean [Right Arm] 94 Blood Pressure Position Sitting Blood Pressure Position [Right Arm] Lying Pulse Oximetry 100 99 Oxygen Delivery Method Room Air Room Air Sepsis Recent Fever Within 48 Hours No Sepsis New/Unexplained Change in Mental Status N/A Sepsis Action Taken by Nursing No Action Required CONSTITUTIONAL/VITAL SIGNS: Reviewed / noted above. GENERAL: Non-toxic in appearance. INTEGUMENTARY: Warm, dry, and [place]. HEAD: Normocephalic. EYES: without scleral icterus or trauma. ENT/OROPHARYNX: clear and moist. There is moderate swelling to the right jaw/mandibular region. This is also tender on exam. Patient has a decayed last molar on the right. There is some tenderness along the lateral border of the teeth on the right. LYMPHADENOPATHY/NECK: Is supple without lymphadenopathy or meningismus. RESPIRATORY: Clear to auscultation bilaterally. No increased work of breathing. CARDIOVASCULAR: Regular rate and rhythm. GI/ABDOMEN: Soft and nontender. No organomegaly or pulsatile mass. EXTREMITIES: Warm and well perfused. BACK: No CVA tenderness. NEUROLOGICAL: Intact without focal deficits. PSYCHIATRIC: normal affect. MUSCULOSKELETAL: Normally developed with good muscle tone. TRIAGE NURSING DOCUMENTATION REVIEWED. Course Administered Medications Sodium Chloride (Nss 1000ml) 1,000 mls @ 125 mls/hr IV .Q8H STA Stop: 07/07/21 05:55 Last Admin: 07/06/21 22:44 Dose: 125 mls/hr Documented by: [id number] Discontinued Medications Piperacillin Sod/Tazobactam Sod (Zosyn) 4.5 gm in 120 mls @ 200 mls/hr IV NOW STA Stop: 07/06/21 22:31 Last Infusion: 07/06/21 23:32 Dose: 0 mls/hr Documented by: [id number] Admin: 07/06/21 22:44 Dose: 200 mls/hr Documented by: [id number] Ioversol (Optiray 320 100ml) 100 ml IV ONCE ONE Stop: 07/06/21 22:43 Last Admin: 07/06/21 22:43 Dose: 93 ml Documented by: [id number] Morphine Sulfate (Morphine Sulfate 2 Mg/Ml Carp) 2 mg IV NOW STA Stop: 07/06/21 22:29 Last Admin: 07/06/21 22:44 Dose: 2 mg Documented by: [id number] Ondansetron HCl (Ondansetron Inj 2 Mg/Ml 2 Ml Vial) 4 mg IV NOW STA Stop: 07/06/21 21:57 Last Admin: 07/06/21 22:44 Dose: 4 mg Documented by: [id number] Medical Decision Making Differential Diagnosis Cellulitis, abscess, MRSA infection, DVT, necrotizing fasciitis, dermatitis, drug eruption, allergic reaction, as well as other pathologies. Medical Records Attestation: I reviewed the patient's medical records. Home Medications Current Medication List: was personally reviewed by me Laboratory Data Attestation: I reviewed the patient's lab results. Result diagrams: 07/06/21 22:24 07/06/21 22:24 Lab Results 07/06/21 07/06/21 Range/Units 22:24 22:24 WBC 6.67 (4.8-10.8) K/uL RBC 4.44 (4.2-5.4) M/uL Hgb 12.5 (12.0-16.0) g/dL Hct 34.8 L (37-47) % MCV 78.4 L (80-100) fL MCH 28.2 (25-34) pg MCHC 35.9 (32-36) g/dL RDW Std Deviation 40.0 (36.4-46.3) fL RDW Coeff of Yao 14.1 (11.5-14.5) % Plt Count 158 (130-400) K/uL MPV 9.9 (7.4-10.4) fL Immature Gran % (Auto) 0.1 % Neut % (Auto) 73.2 % Lymph % (Auto) 15.4 % [place] % (Auto) 11.2 % Eos % (Auto) 0.1 % Baso % (Auto) 0.0 % Neut # (Auto) 4.87 (1.4-6.5) K/uL Lymph # (Auto) 1.03 L (1.2-3.4) K/uL [place] # (Auto) 0.75 H (0.11-0.59) K/uL Eos # (Auto) 0.01 (0-0.5) K/uL Baso # (Auto) 0.00 (0-0.2) K/uL Immature Gran # (Auto) 0.01 (0.00-0.02) K/uL Sodium 138 (136-145) mmol/L Potassium 3.2 L (3.5-5.1) mmol/L Chloride 106 (98-107) mmol/L Carbon Dioxide 26 (21-32) mmol/L Anion Gap 6 (3-11) BUN 9 (6-23) mg/dl Creatinine 0.55 L (0.6-1.2) mg/dl Est Cr Clr Drug Dosing Not Reportable Est GFR ( Amer) > 150.0 ml/min Est GFR (Non-Af Amer) 131.3 ml/min BUN/Creatinine Ratio 16.4 (10-20) Glucose 132 H (70-99(Fasting)) mg/dl Calcium 9.1 (8.5-10.1) mg/dl Total Bilirubin 0.8 (0.2-1.0) mg/dl AST 12 L (13-39) U/L ALT 10 (7-52) U/L Alkaline Phosphatase 48 (34-104) U/L Total Protein 7.1 (6.0-8.3) gm/dl Albumin 4.2 (3.4-5.0) gm/dl Globulin 2.9 (2.5-4.0) gm/dl Albumin/Globulin Ratio 1.4 (0.9-2) Imaging Data Radiologist's Impression: CT scan of the face shows right chandler and submandibular subcutaneous infiltration consistent with cellulitis. There is periodontal disease including a periapical abscess involving the right posterior mandibular molar. There is a abscess in the inferior aspect of the posterior body of the right mandible also consistent with an abscess. MDM Narrative Patient presents with right lateral jaw swelling and tenderness that started earlier today likely related to decayed dentition particularly the right last molar. CBC was unremarkable. Chemistry panel was unremarkable. CT scan of the face shows right facial cellulitis in the chandler and submandibular area. She also has a periapical abscess in the area of the last right molar with adjacent cortical thinning. There is also an abscess in the inferior aspect of the body of the right mandible. The patient was treated with some IV morphine for discomfort. She is also given some IV Zofran for nausea and IV Zosyn as well as some IV fluids. Because of the significant swelling in the face and the CT scan results, the patient will be observed overnight in the hospital by the hospitalist service. Consult will be placed for Dr. Mack. Impression & Plan Cellulitis and abscess of face Discharge Plan Visit Data Chief Complaint: Facial Injury/Pain Stated Complaint: R SIDE FACE SWOLLEN, DIFFICULTY OPENING MOUTH ED Provider: Amandeep Giles Discharge Problem: Cellulitis and abscess of face Patient Disposition: Being Evaluated by Hospitalist Forms Stand Alone Forms: [facility] Prescriptions Prescriptions: No Action No Known Home Medications RF: 0 Referrals Referrals: Sara Marquis MD [Primary Care Provider] -
--- NOTE | 2021-07-07 01:11 | History & Physical Report ---
Date of Service July 07, 2021 Assessment & Plan (1) Cellulitis and abscess of face: Plan: Cellulitis and abscess of face- Dental caries, dental infection, fluid collection in front of right mandible Given Zosyn 4.5 g IV by the ED and started on NSS at [address] on Unasyn 3 g IV every 6 hours LR at 80 mils per hour Zofran 4 mg IV every 6 hours as needed Tylenol 1 g IV every 8 hours as needed mild pain or fever Morphine sulfate 2 mg IV every 8 every 3 hours as needed severe pain Maxillo-Facial surgery Dr. Mack consulted by ED (2) Cerebral palsy: Plan: Patient's older sister will stay with patient during hospitalization History of Present Illness Chief Complaint: The patient presents to the emergency department with complaint of right facial swelling that was first noticed by her sister today Primary Care Provider: Sara Marquis MD The patient is a 25-year-old female with a past medical history including GBS carrier, cerebral palsy, asthma, meningitis, seizures and urinary tract infection. She presents to emergency department, accompanied by her sister, with complaint of right-sided facial swelling and pain, of at least 1 days duration. Allergies Allergy/AdvReac Type Severity Reaction Status Date / Time azithromycin Allergy Unknown Rash Verified 07/06/21 22:03 clarithromycin Allergy Unknown HAPPENED Verified 07/06/21 22:03 A CHILD Home Medications Medication Instructions Recorded Confirmed Type No Known Home Medications 07/06/21 07/06/21 History Past Med/Surg History Medical History (Updated 07/07/21 @ 02:07 by Corby Kaur MD) Asthma Cerebral palsy Meningitis Seizures Vaginal delivery Family History Grandmother (Maternal) Cancer Maternal Grandfather-Kidney Cancer Maternal/Paternal Grandmother-Breast Cancer Hypertension Grandfather (Maternal) Hypertension Grandfather (Maternal) Cancer Grandmother (Paternal) Cancer Social History Smoking Status: Never smoker Second Hand Exposure: Yes; Hx Alcohol Use: No Hx Substance Use: No Preferred Language: Armenian Communication Ability: Effective [place] Tender Required: No Beliefs That Will Affect Care: None marital status: Single Current Living Situation: Family Current Living Situation Comment: lives with parents and other children Feels Safe at Home: Yes Assistive Devices: None Review of Systems Review of Systems: The patient denies chest pain, palpitations, shortness of breath, dyspnea on exertion, cough, lower extremity swelling, vomiting, diarrhea , constipation, abdominal pain, pelvic pain, blood in urine or stool, dysuria, urinary frequency or urgency, memory loss, loss of consciousness, rash, abnormal bruising or bleeding, imbalance, focal or generalized weakness, numbness or tingling in arms or legs, generalized arthralgias or myalgias, back or neck pain, or night sweats. The review of systems is otherwise negative other than for that already noted above, and at least 10 systems have been reviewed. Physical Exam Physical Exam: The patient is awake, alert and oriented 3, well developed and well nourished, normocephalic and atraumatic, lying in bed and in no acute distress. HEENT--PERRL, EOMI, mucous membranes and oropharynx dry. Neck--supple. No JVD. No bruits. Thyroid normal, trachea midline, no adenopathy. Heart--normal S1 and S2. No murmurs, rubs or gallops. Lungs--clear bilaterally, no respiratory distress, no accessory muscle use. Abdomen--normal bowel sounds and soft. Nontender. Nondistended, no hernias or masses, no organomegaly. Extremities--no cyanosis or clubbing. No edema. Dermatologic--normal skin turgor, normal color, no abnormal lymph nodes, no rash. Neurologic--cranial nerves II through XII grossly intact. Rheumatologic--normal range of motion. Psychiatric--normal affect. Results & Data Results & Data ([facility]) Vital Signs (Past 12 Hours) Vital Signs Temp Pulse Pulse Resp BP BP Pulse Ox 07/07/21 00:06 84 19 99/57 L 94 07/07/21 00:00 91 H 25 H 07/06/21 23:04 80 18 108/72 07/06/21 22:47 94 H 15 100 07/06/21 22:45 36.4 C L 90 18 112/86 99 07/06/21 21:44 37.2 C 114 H 16 103/69 100 Laboratory Results Laboratory Results WBC 6.67 K/uL (4.8-10.8) 07/06/21 22:24 RBC 4.44 M/uL (4.2-5.4) 07/06/21: Hgb 12.5 g/dL (12.0-16.0) 07/06/21: Hct 34.8 % (37-47) L 07/06/21: MCV 78.4 fL (80-100) L 07/06/21: MCH 28.2 pg (25-34) 07/06/21: MCHC 35.9 g/dL (32-36) 07/06/21: RDW Std Deviation 40.0 fL (36.4-46.3) 07/06/21: RDW Coeff of Yao 14.1 % (11.5-14.5) 07/06/21: Plt Count 158 K/uL (130-400) 07/06/21: MPV 9.9 fL (7.4-10.4) 07/06/21: Immature Gran % (Auto) 0.1 % 07/06/21: Neut % (Auto) 73.2 % 07/06/21: Lymph % (Auto) 15.4 % 07/06/21: [place] % (Auto) 11.2 % 07/06/21: Eos % (Auto) 0.1 % 07/06/21: Baso % (Auto) 0.0 % 07/06/21: Neut # (Auto) 4.87 K/uL (1.4-6.5) 07/06/21: Lymph # (Auto) 1.03 K/uL (1.2-3.4) L 07/06/21: [place] # (Auto) 0.75 K/uL (0.11-0.59) H 07/06/21: Eos # (Auto) 0.01 K/uL (0-0.5) 07/06/21: Baso # (Auto) 0.00 K/uL (0-0.2) 07/06/21: Immature Gran # (Auto) 0.01 K/uL (0.00-0.02) 07/06/21: Sodium 138 mmol/L (136-145) 07/06/21 22:24 Potassium 3.2 mmol/L (3.5-5.1) L 07/06/21 22:24 Chloride 106 mmol/L (98-107) 07/06/21 22:24 Carbon Dioxide 26 mmol/L (21-32) 07/06/21 22:24 Anion Gap 6 (3-11) 07/06/21 22:24 BUN 9 mg/dl (6-23) 07/06/21 22:24 Creatinine 0.55 mg/dl (0.6-1.2) L 07/06/21 22:24 Est Cr Clr Drug Dosing Not Reportable 07/06/21 22:24 Est GFR ( Amer) > 150.0 ml/min 07/06/21 22:24 Est GFR (Non-Af Amer) 131.3 ml/min 07/06/21 22:24 BUN/Creatinine Ratio 16.4 (10-20) 07/06/21 22:24 Glucose 132 mg/dl (70-99(Fasting)) H 07/06/21 22:24 Calcium 9.1 mg/dl (8.5-10.1) 07/06/21 22:24 Total Bilirubin 0.8 mg/dl (0.2-1.0) 07/06/21 22:24 AST 12 U/L (13-39) L 07/06/21 22:24 ALT 10 U/L (7-52) 07/06/21 22:24 Alkaline Phosphatase 48 U/L (34-104) 07/06/21 22:24 Total Protein 7.1 gm/dl (6.0-8.3) 07/06/21 22:24 Albumin 4.2 gm/dl (3.4-5.0) 07/06/21 22:24 Globulin 2.9 gm/dl (2.5-4.0) 07/06/21 22:24 Albumin/Globulin Ratio 1.4 (0.9-2) 07/06/21 22:24 SARS-CoV-2, RNA, NAAT NEGATIVE (NEGATIVE) 07/07/21 00:00 Code Status & VTE Plan Code Status Full code VTE Prophylaxis Plan VTE Prophylaxis will be ordered: Yes PG Care Time/CCT Total # of Minutes Spent Total Time Spent with Patient: Total time spent is greater than 50% in coordination of care (as documented) at patient's floor/unit and/or counseling patient: Coding Level of Care Code INT OBSERVATION CARE 71M LVL 3 Diagnoses Cellulitis and abscess of face L03.211; L02.01 Cerebral palsy G80.9
[2021-07-07] MEDS ORDERED: MoRPHine SULFATE 2 MG/ML CARP IV PRN (02:51)
[2021-07-07] MEDS ORDERED: ONDANSETRON INJ 2 MG/ML 2 ML VIAL IV PRN (02:51)
[2021-07-07] MEDS ORDERED: LACTATED RINGER'S 1,000 ML IV SCH (02:51)
[2021-07-07] MEDS: ACETAMINOPHEN 1,000 MG/100 ML VIAL IV PRN ×2 (03:37→08:06)
[2021-07-07] MEDS: AMPICILLIN/SULBACTAM SOD 3,000 MG in 0.9 % SODIUM CHLORIDE 100 ML IV SCH ×2 (05:30→10:55)
--- NOTE | 2021-07-07 07:50 | CT Scan Report ---
CT facial bones w con HISTORY: right facial swelling TECHNIQUE: Multiaxial CT images of the maxillofacial region was performed following the intravenous a dministration of 93 cc of Optiray 320 and reformatted in the sagittal and coronal planes. COMPARISON STUDY: CT maxillofacial 09/08/2017. FINDINGS: The visualized brain parenchyma and orbits are unremarkable. The pterygopalatine fossa are maintained. The epiglottis and prevertebral soft tissues are intact. The parotid glands are symmetric . There is right perimandibular, submandibular, and submental soft tissue swelling with a 1.7 x 1.1 c m abscess abutting the undersurface of the body/angle of the right hemimandible. This is secondary to an 8 mm periapical lucency at ADA 31 which demonstrates a small area of cortical breakthrough along the lingual surface of the mandible. There are multiple dental caries and a few additional scattered periapical lucency seen throughout the mandibular and maxillary teeth. Edema within the submental spa ce with mild mass effect along the right submandibular gland and right mouth floor with thickening of the right mylohyoid muscle. Normal left submandibular gland. There is mild upper right cervical/subm andibular lymphadenopathy which is likely reactive. The thyroid gland enhances normally. The paranasa l sinuses and mastoid air cells are clear. No fractures within the visualized osseous structures. IMPRESSION: 1. A 17 x 11 mm abscess abutting the undersurface of the body/angle of the right hemimandible. This i s secondary to an 8 mm periapical lucency at ADA 31 which demonstrates a small area of cortical break through along the lingual surface of the mandible. 2. Multiple dental caries and a few additional scattered periapical lucency seen throughout the alexis bular maxillary teeth. 3. Right perimandibular, submandibular, and submental soft tissue swelling/edema. This is likely reac tive to the above abscess. Clinical correlation recommended to exclude the possibility of a developin g Orlando's angina given the mild mass effect along the mouth floor. 4. Additional findings as described above. ACT 112: Negative or not required by law. Electronically signed by: Bryce Almanza M.D. 07/07/2021 7:48 AM
[2021-07-07 09:07] LABS: Eosinophils # (auto) 0.04 K/uL (0-0.5); Eosinophils % (auto) 0.7 %; Hematocrit (blood only) 32.7 % (37-47); Hemoglobin 11.5 g/dL (12.0-16.0); Lymphocytes # (auto) 1.78 K/uL (1.2-3.4); Lymphocytes % (auto) 29.3 %; Mean Corpuscular Hemoglobin 27.8 pg (25-34); Mean Corpuscular Hgb Conc 35.2 g/dL (32-36); Mean Corpuscular Volume 79.2 fL (80-100); Mean Platelet Volume 10.6 fL (7.4-10.4); Monocytes # (auto) 0.78 K/uL (0.11-0.59); Monocytes % (auto) 12.9 %; Neutrophils # (auto) 3.47 K/uL (1.4-6.5); Neutrophils % (auto) 57.1 %; Platelet Count 157 K/uL (130-400); RDW Coefficient of Variation 14.1 % (11.5-14.5); RDW Standard Deviation 40.7 fL (36.4-46.3); Red Blood Count 4.13 M/uL (4.2-5.4); White Blood Count 6.07 K/uL (4.8-10.8)
[2021-07-07 09:11] LABS: Albumin Level 3.8 gm/dl (3.4-5.0); Anion Gap 6 (3-11); BUN Creatinine Ratio 15.7 (10-20); Blood Urea Nitrogen 8 mg/dl (6-23); Calcium 8.4 mg/dl (8.5-10.1); Carbon Dioxide 26 mmol/L (21-32); Chloride 107 mmol/L (98-107); Creatinine Clr Calc Pharmacy 131.4 ml/min; Est GFR (African American) > 150.0 ml/min; Est GFR (Non-African American) 134.6 ml/min; Glucose 90 mg/dl (70-99(Fasting)); Phosphorus 3.7 mg/dl (2.5-4.9); Potassium 3.2 mmol/L (3.5-5.1); Sodium 139 mmol/L (136-145)
[2021-07-07] MEDS: POTASSIUM CHLORIDE / WTR 10 MEQ/100 ML PLCT IV SCH ×2 (09:11→11:54)
--- NOTE | 2021-07-07 09:44 | Hospitalist Progress Note ---
Date of Service July 07, 2021 Assessment & Plan (1) Cellulitis and abscess of face: Plan: Cellulitis and abscess of face- Dental infection, fluid collection in front of right mandible c/w abscess - Given Zosyn 4.5 g IV by the ED and started on NSS at 125 mils per hour - Abx changed to Unasyn 3 g IV every 6 hours - Fluids changed to LR at 80 mils per hour - Zofran 4 mg IV every 6 hours as needed - Tylenol 1 g IV every 8 hours as needed mild pain or fever - Morphine sulfate 2 mg IV every 8 every 3 hours as needed severe pain - Maxillo-Facial surgery Dr. Mack consulted by ED - NPO (2) Cerebral palsy: Plan: Patient's older sister will stay with patient during hospitalization (3) Hypokalemia: Plan: - Two 10meq KCl riders have been ordered q1h x2 Plan: Await input from Dr. Mack, NPO in anticipation of surgical I&D. Pain control, fluids, and antibiotics as outlined above. Plan d/w Dr. Martinez. Admission and Anticipated Discharge Date Admission Date: July 07, 2021 Subjective Patient seen on daily rounds this morning. She was hospitalized overnight due to dental infection with associated abscess in the mandible. OMFS has been consulted. Pt empirically on abx and pain control. Has been kept NPO in anticipation of surgical I&D. Other than pain, she verbalizes no other complaints. Pt has CP and is accompanied by her older sister. Review of Systems Review of Systems: CONSTITUTIONAL: Denies weight loss/gain, fever and chills, fatigue, malaise, generalized weakness. HEENT: +jaw swelling on the right and pain. RESPIRATORY: Denies SOB, cough, wheezing. CV: Denies palpitations, CP, lower extremity edema, orthopnea, PND. GI: Denies abdominal pain, nausea, vomiting and diarrhea. : Denies dysuria and urinary frequency, urgency, hesitancy. MUSCULOSKELETAL: Denies myalgia and joint pain. SKIN: Denies rash and pruritus. NEUROLOGICAL: Denies headache, syncope, focal weakness, numbness, tingling. PSYCHIATRIC: Denies recent changes in mood. Denies anxiety and depression. Physical Exam Physical Exam: GENERAL: Well-developed, well-nourished 25 yo wf. Appears uncomfortable but NAD. HENT: Moist mucous membranes. +ACC adenopathy. right sided facial swelling and tenderness along jaw line LUNGS: Clear to auscultation bilaterally. No accessory muscle use. No W/R/R. CARDIOVASCULAR: Regular rate and rhythm ABDOMEN: Soft, non-tender and non-distended. BS normal x 4 quad. EXTREMITIES: No edema. Non-tender. Peripheral pulses +2/4. NEUROLOGIC: A&O x3. PSYCHIATRIC: Cooperative. Appropriate mood and affect. SKIN: Warm, dry, intact. No rashes or lesions. Results & Data Results & Data ([facility]) Vital Signs (Past 12 Hours) Vital Signs Temp Pulse Pulse Pulse Resp BP BP 07/07/21 07:58 36.7 C 74 16 91/57 L 07/07/21 02:58 37.7 C H 85 16 115/77 07/07/21 00:06 84 19 99/57 L 07/07/21 00:00 91 H 25 H 07/06/21 23:04 80 18 108/72 07/06/21 22:47 94 H 15 07/06/21 22:45 36.4 C L 90 18 112/86 07/06/21 21:44 37.2 C 114 H 16 103/69 Pulse Ox 07/07/21 07:58 98 07/07/21 02:58 100 07/07/21 00:06 94 07/07/21 00:00 07/06/21 23:04 07/06/21 22:47 100 07/06/21 22:45 99 07/06/21 21:44 100 Laboratory Results 07/07/21 07:51 07/07/21 07:51 PG Care Time/CCT Total # of Minutes Spent Total Time Spent with Patient: Total time spent is greater than 50% in coordination of care (as documented) at patient's floor/unit and/or counseling patient: Coding Level of Care Code None Diagnoses Cellulitis and abscess of face L03.211; L02.01 Cerebral palsy G80.9 Hypokalemia E87.6
--- NOTE | 2021-07-07 15:02 | Discharge Summary ---
Date of Service July 07, 2021 Admission HPI Per Admitting Provider The patient is a 25-year-old female with a past medical history including GBS carrier, cerebral palsy, asthma, meningitis, seizures and urinary tract infection. She presents to emergency department, accompanied by her sister, with complaint of right-sided facial swelling and pain, of at least 1 days duration. Principal Diagnosis Dental infection with associated abscess Discharge Exam GENERAL: Well-developed, well-nourished 25 yo wf. Appears uncomfortable but NAD. HENT: Moist mucous membranes. +ACC adenopathy. right sided facial swelling and tenderness along jaw line LUNGS: Clear to auscultation bilaterally. No accessory muscle use. No W/R/R. CARDIOVASCULAR: Regular rate and rhythm ABDOMEN: Soft, non-tender and non-distended. BS normal x 4 quad. EXTREMITIES: No edema. Non-tender. Peripheral pulses +2/4. NEUROLOGIC: A&O x3. PSYCHIATRIC: Cooperative. Appropriate mood and affect. SKIN: Warm, dry, intact. No rashes or lesions. Discharge Data Allergies Allergy/AdvReac Type Severity Reaction Status Date / Time azithromycin Allergy Unknown Rash Verified 07/06/21 22:03 clarithromycin Allergy Unknown HAPPENED Verified 07/06/21 22:03 A CHILD Consultations 07/07/21 00:28 Consult Oromaxillofacial Surgery Stat Ordered Studies Face CT 07/06/21 21:56 CT facial bones w con HISTORY: right facial swelling TECHNIQUE: Multiaxial CT images of the maxillofacial region was performed following the intravenous administration of 93 cc of Optiray 320 and reformatted in the sagittal and coronal planes. COMPARISON STUDY: CT maxillofacial 09/08/2017. FINDINGS: The visualized brain parenchyma and orbits are unremarkable. The pterygopalatine fossa are maintained. The epiglottis and prevertebral soft tissues are intact. The parotid glands are symmetric. There is right perimandibular, submandibular, and submental soft tissue swelling with a 1.7 x 1.1 cm abscess abutting the undersurface of the body/angle of the right hemimandible. This is secondary to an 8 mm periapical lucency at ADA 31 which demonstrates a small area of cortical breakthrough along the lingual surface of the mandible. There are multiple dental caries and a few additional scattered periapical lucency seen throughout the mandibular and maxillary teeth. Edema within the submental space with mild mass effect along the right submandibular gland and right mouth floor with thickening of the right mylohyoid muscle. Normal left submandibular gland. There is mild upper right cervical/submandibular lymphadenopathy which is likely reactive. The thyroid gland enhances normally. The paranasal sinuses and mastoid air cells are clear. No fractures within the visualized osseous structures. IMPRESSION: 1. A 17 x 11 mm abscess abutting the undersurface of the body/angle of the right hemimandible. This is secondary to an 8 mm periapical lucency at ADA 31 which demonstrates a small area of cortical breakthrough along the lingual surface of the mandible. 2. Multiple dental caries and a few additional scattered periapical lucency seen throughout the mandibular maxillary teeth. 3. Right perimandibular, submandibular, and submental soft tissue swelling/edema. This is likely reactive to the above abscess. Clinical correlation recommended to exclude the possibility of a developing Orlando's mathew na given the mild mass effect along the mouth floor. 4. Additional findings as described above. ACT 112: Negative or not required by law. Electronically signed by: Bryce Almanza M.D. 07/07/2021 7:48 AM Hospital Course (1) Cellulitis and abscess of face: Cellulitis and abscess of face- Dental infection, fluid collection in front of right mandible c/w abscess - Placed in observation to med/surg - Given Zosyn 4.5 g IV by the ED and started on NSS at 125 mils per hour - Abx changed to Unasyn 3 g IV every 6 hours - Fluids changed to LR at 80 mils per hour - Zofran 4 mg IV every 6 hours as needed - Tylenol 1 g IV every 8 hours as needed mild pain or fever - Morphine sulfate 2 mg IV every 8 every 3 hours as needed severe pain - Maxillo-Facial surgery Dr. Mack consulted by ED - Kept NPO for anticipated procedure - D/w Dr. Mack this afternoon, pt is to be d/c'd from hospital and go directly to office for I&D of abscess and tooth extraction (2) Cerebral palsy: - Supportive care (3) Hypokalemia: - Two 10meq KCl riders have been ordered q1h x2 given Patient will be d/c'd on course of Augmentin. After leaving hospital, go directly to Dr. Mack's office where he will perform procedure as outlined above. Pain control should be rx'd by [facility]. F/u with pcp within 1 week. Plan d/w Dr. Martinez who is in agreement. Total Time Total Time Spent Total Time Spent (In Minutes): <30 minutes Discharge Plan Discharge Items Patient Disposition: Home - Self-Care Reason For Visit: R DENTAL ABS, FACIAL SUBMANDIBULAR CELLULTIS/ABS Discharge Diagnosis: Dental infection and abscess Activity: Resume your previous activity Non-emergency contact: Primary Care Provider and Surgeon Call non-emergency contact if: you have any medication questions, your symptoms worsen and your pain is not controlled Follow-up/Referrals: Sara Marquis MD [Primary Care Provider] - Evelio Mack MD, DDS [Surgeon] - (ONCE YOU ARE DISCHARGED GO DIRECTLY TO DR MACK'S OFFICE. HIS PHONE NUMBER IS [phone]. HE IS WAITING ON YOU.) Diet: Regular Diet Texture: Dental soft (bite-sized) Addtl Attending Provider Instructions: * You need to continue not having anything to eat or drink * You will leave the hospital and go directly to Dr. Mack's office on [address] [facility] Dr. Mack is going to take care of draining the abscess and extracting the infected tooth. * You are being prescribed a course of antibiotics, please complete them as directed * Dr. Mack should prescribe something for pain following the procedure, in the event that he does not, please contact us at the nonemergency number listed and we will facilitate sending in something to your pharmacy * Follow up with your family doctor within 1 week Pending Studies at Discharge: No Stand-Alone Forms: My [facility], Smoking Cessation Medications and DC Order Prescriptions: New amoxicillin-pot clavulanate 875-125 mg tablet 1 tab PO BID Qty: 20 RF: 0 Discharge Orders: Discharge Order (Routine); Ordered 07/07/21 Ordered By: Ashley Amaya/Other Patient Handouts: ED Abscess Antibiotic ... Admission Data Admit Date/Time: 07/07/21 01:11 Attending Provider: Dayton Martinez Admit Provider: Corby Kaur Primary Care Provider: Sara Marquis Other Providers: Evelio Mack Other Interventions: Discharge Summary Assessment (RN) Last Done: 07/07/21 15:11 Supervising Physician Co-Signing Physician Notes Patient seen and case discussed with MARI Lafleur, agree with assessment and plan as noted. Patient is a 25-year-old female with a history of cerebral palsy who presents with odontogenic infection, treated with Unasyn with improvement during admission. Is being discharged with direct follow-up to Dr. Mack for tooth removal, abscess drainage/source control. Patient will be converted to Augmentin on discharge. Coding Level of Care Code None Diagnoses Cellulitis and abscess of face L03.211; L02.01 Cerebral palsy G80.9 Hypokalemia E87.6
== END 2021-07-07 15:26 | disposition home or self-care (01) ==
LOC: ED 21:36 → 3E 21:36 → SUATTDRO 07-07 01:11 → 3E 07-07 02:07
DX: Z88.1 Allergy status to other antibiotic agents; Z80.3 Family history of malignant neoplasm of breast; K02.9 Dental caries, unspecified; L03.211 Cellulitis of face; Z80.51 Family history of malignant neoplasm of kidney; L02.01 Cutaneous abscess of face; Z20.822 Contact with and (suspected) exposure to COVID-19; E87.6 Hypokalemia; G80.9 Cerebral palsy, unspecified